=== PATIENT | female | born 1950 | race Caucasian/White ===

== ENCOUNTER 2020-08-24 10:12 | Emergency (ER) | payer MEDICARE, SELFPAY ==
[2020-08-24 10:18] VITALS: BP 116/67; PULSE 113; RESP 14; TEMP 37.1; O2SAT 100
--- NOTE | 2020-08-24 10:25 | ED.SKABFB ---
HPI - Skin/Abscess/Foreign Bdy General Chief complaint: Extremity Injury, Lower Stated complaint: right foot poss gout Time Seen by Provider: 08/24/20 10:26 Source: patient Mode of arrival: ambulatory Limitations: no limitations History of Present Illness HPI narrative: Eva Upton is a 69 yo female with a PMH of HTN, high cholesterol, GERD, who comes to clinic with recurrent gout in feet. Seen by PCP who gave her medrol dose pack x 2 for gout in L foot, now in great toe R foot. Rates pain /. Present x 2 days- worse today Related Data Home Medications Medication Instructions Recorded Confirmed omeprazole 40 mg capsule,delayed 40 mg PO DAILY 09/05/19 08/24/20 release Allergies Allergy/AdvReac Type Severity Reaction Status Date / Time tramadol Allergy Unknown Hives Verified 08/24/20 10:27 Review of Systems Review of Systems: Narrative: CONSTITUTIONAL: Denies fever, chills, sweats. EYES: Denies visual changes, redness, discharge. ENT: Denies rhinorrhea, congestion, sore throat, otalgia. CARDIOVASCULAR: Denies chest pain, palpitations, edema. RESPIRATORY: Denies dyspnea, wheezing, cough GASTROINTESTINAL: Denies abdominal pain, nausea, vomiting, diarrhea. GENITOURINARY: Denies dysuria, hematuria, abnormal discharge SKIN: Denies rash or itching. R great toe swelling NEUROLOGIC: Denies numbness, or focal weakness. PSYCHIATRIC: Denies anxiety or depression. [facility] Surgical History Surgical History Status post bilateral knee replacements Status post D&C Status post hysterectomy with oophorectomy Status post tubal ligation Family History Family History Sibling Hypertension Father Malignant neoplasm of prostate Family history of diabetes mellitus in first degree relative Social History Social History Smoking status: Never smoker Second hand tobacco smoke exposure: No Alcohol intake: never Substance use: never Substance use type: does not use Gender identity (if verbalized by the patient): Female Comments At time of signature, I agree with nursing past medical, surgical, social and family history. There is no relevant family history pertinent to the presenting complaint. Exam Narrative: Exam Narrative: GENERAL: This is a well-nourished, well-developed patient, in moderate distress. HEAD: normocephalic, atraumatic. EYES: Sclera clear/white. Vision is grossly intact. EARS: External ears normal, Hearing grossly intact. NOSE: External nose normal without nasal discharge, nares without redness, no rhinorrhea. THROAT: Mucous membranes moist, NECK: Neck supple, non-tender CARDIOVASCULAR: Regular rate and rhythm without murmurs, gallops, or rubs. RESPIRATORY: Clear to auscultation. Breath sounds equal bilaterally. No wheezes, rales, or rhonchi. GASTROINTESTINAL: Abdomen soft, SKIN: warm, intact with no suspicious lesions or rash, good texture and turgor. NEURO: awake, alert, and oriented to person, place and time. There were no obvious focal neurologic abnormalities. Steady gait EXTREMITIES: Normal range of motion. Right great toe swelling with tenderness at the forefoot 2+ pedal pulse difficulty putting pressure when standing BACK: Nontender without deformity Course Course Emergency Course: Patient comes to clinic with right great toe swelling which she believes is recurrent gout. Gout for last couple weeks ago left foot, treated premedication with 2 rounds Medrol Dosepak agreed to call doctor on Wednesday morning to get blood work ordered by PCP. Started on prednisone 40 mg x 4 days and started on colchicine Discussed possibility of other diagnoses such as RA or OA alternative to get Vital Signs Vital signs: Vital Signs Temperature 98.8 F 08/24/20 10:18 Pulse Rate 113 H 08/24/20 10:18 Respiratory Rate 14 08/24/20 1
== END 2020-08-24 10:54 | disposition home or self-care (01) ==
PROVIDERS: Emergency Provider Nurse Practitioner; PCP Family Medicine
DX: M79.674 Pain in right toe(s) (principal); Z96.653 Presence of artificial knee joint, bilateral; I10 Essential (primary) hypertension; E78.00 Pure hypercholesterolemia, unspecified; K21.9 Gastro-esophageal reflux disease without esophagitis
CPT/HCPCS: 99213; G0463

== ENCOUNTER 2020-10-23 09:27 | Outpatient (CLI) | payer MEDICARE, SELFPAY | END 2020-10-23 09:28 | disposition home or self-care (01) | PROVIDERS: PCP Family Medicine; Visit Provider Nurse Practitioner Family | DX: M10.00 Idiopathic gout, unspecified site (principal) | CPT/HCPCS: 36415; 84550 ==

== ENCOUNTER 2020-12-12 12:09 | Outpatient (CLI) | payer MEDICARE, SELFPAY ==
--- NOTE | ~2020-12-12 | XR_ITS ---
EXAMINATION: XR lumbar spine 2-3V DATE: 12/12/2020 12:32 INDICATION: Low back pain TECHNIQUE: Anteroposterior and lateral views of the lumbar spine, and cone-down lateral view of the l umbosacral junction were obtained. COMPARISON: None. FINDINGS: There are 18 degrees of lumbar levoscoliosis. There is severe loss of intervertebral disc s pace height throughout the lumbar spine, asymmetric on the right. There are 4 mm of anterolisthesis o f L3 on L4 and L4 on L5. There is no fracture. The vertebral body heights are maintained. There is se german lower lumbar facet osteoarthritis. Calcified atherosclerosis is noted. Small degenerative osteop hytes project from the anterior endplates of multiple vertebral bodies. IMPRESSION: 1. Levoscoliosis and severe spondylosis of the lumbar spine. Reviewed, dictated and finalized at location A. R [employer]AT[employer] SUPERVISOR
== END 2020-12-12 12:10 | disposition home or self-care (01) ==
PROVIDERS: PCP Family Medicine; Visit Provider Nurse Practitioner Family
DX: M47.896 Other spondylosis, lumbar region (principal)
CPT/HCPCS: 72100

== ENCOUNTER → 2021-01-25 10:32 | Outpatient (CLI) | payer MEDICARE, SELFPAY ==
--- NOTE | ~2021-01-25 | MR_ITS ---
EXAMINATION: MR lumbar spine wo con DATE: 01/25/2021 11:22 INDICATION: Low back pain. Right buttock pain. TECHNIQUE: Magnetic resonance imaging (MRI) of the lumbar spine was performed without intravenous con trast. Sequences included sagittal T2-weighted FSE, sagittal T2-weighted FS FSE, sagittal T1-weighted FSE, and axial T2-weighted FSE. COMPARISON: Lumbar spine radiographs 12/12/2020 FINDINGS: There is 21 degrees levoscoliosis of lumbar spine. There is 3 mm retrolisthesis of L1 on L2 and L2 on L3 and 3 mm anterolisthesis of L3 on L4 and L4 on L5. There is severely decreased disc hei ght from L1-L2 through 3-L4 and L5-S1 with endplate remodeling. There is moderately decreased disc he ight at L4-L5. There is mild chronic anterior wedging of T12 vertebral body. The distal spinal cord s ignal intensity is normal. The conus medullaris is at L1. The following disc levels are specifically discussed: L1-L2: The disc is bulging and has an annular fissure. There is severe bilateral facet joint osteoart hritis. There is moderate right and mild left neural foraminal stenosis. There is mild central canal stenosis. L2-L3: The disc is bulging and has an annular fissure. There is moderate right and severe left facet joint osteoarthritis. There is mild bilateral neural foraminal stenosis. There is mild central canal stenosis. L3-L4: The disc is bulging and has an annular fissure. There is severe bilateral facet joint osteoart hritis. There is mild bilateral neural foraminal stenosis. There is mild central canal stenosis. L4-L5: The disc is bulging and has an annular fissure. There is severe bilateral facet joint osteoart hritis. There is mild right and moderate left neural foraminal stenosis. There is mild central canal stenosis. L5-S1: The disc is bulging and has an annular fissure. There is mild right and severe left facet join t osteoarthritis. There is mild bilateral neural foraminal stenosis. There is mild central canal sten osis. IMPRESSION: 1. Severe lumbar spondylosis. 2. Lumbar levoscoliosis. Reviewed, dictated and finalized at location A.
== END ==
PROVIDERS: PCP Family Medicine; Visit Provider Physician Assistant
DX: M47.896 Other spondylosis, lumbar region (principal)
CPT/HCPCS: 72148

== ENCOUNTER 2021-06-26 09:39 | Outpatient (CLI) | payer MEDICARE, SELFPAY ==
--- NOTE | 2021-06-26 11:30 | NEURO_ITS ---
Impression: # Complains of numbness of hand. # Right Carpal Tunnel Syndrome. # No ulnar neuropathy. # Normal needle/EMG exam. Nerve Conduction Studies Anti Sensory Summary Table Stim Site NR Peak (ms) P-T Amp (?V) Site1 Site2 Delta-P (ms) Dist (cm) Brendan (m/s) Right Median Anti Sensory (2-3nd Digit) Wrist 5.4 13.9 Wrist 2-3nd Digit 5.4 14.0 26 Wrist 5.6 22.2 Wrist 2-3nd Digit 5.4 14.0 26 Right Radial Anti Sensory (Base 1st Digit) Wrist 2.3 18.2 Wrist Base 1st Digit 2.3 0.0 Right Ulnar Anti Sensory (5th Digit) Wrist 2.9 67.3 Wrist 5th Digit 2.9 14.0 48 Motor Summary Table Stim Site NR Onset (ms) O-P Amp (mV) Site1 Site2 Delta-0 (ms) Dist (cm) Brendan (m/s) Right Median Motor (Abd Poll Brev) Wrist 4.5 0.9 Elbow Wrist 4.5 27.0 60 Elbow 9.0 1.3 Right Ulnar Motor (Abd Dig Minimi) Wrist 3.0 4.1 A Elbow Wrist 4.5 26.0 58 A Elbow 7.5 1.8 F Wave Studies NR F-Lat (ms) L-R F-Lat (ms) Right Median (Mrkrs) (Abd Poll Brev) 32.60 Right Ulnar (Mrkrs) (Abd Dig Min) 30.70 EMG Side Muscle Nerve Root Ins Act Fibs Amp Dur Recrt Comment Right 1stDorInt Ulnar C8-T1 Nml Nml Nml Nml Nml Right Ext Indicis Radial (Post Int) C7-8 Nml Nml Nml Nml Nml Right Ext Digitorum Radial (Post Int) C7-8 Nml Nml Nml Nml Nml Right BrachioRad Radial C5-6 Nml Nml Nml Nml Nml Right PronatorTeres Median C6-7 Nml Nml Nml Nml Nml Right Abd Poll Brev Median C8-T1 Nml Nml Nml Nml Nml Right ABD Dig Min Ulnar C8-T1 Nml Nml Nml Nml Nml MTDD
== END 2021-06-26 09:40 | disposition home or self-care (01) ==
LOC: ANHNEURO 09:40
PROVIDERS: PCP Family Medicine; Visit Provider Physician Assistant
DX: G56.01 Carpal tunnel syndrome, right upper limb (principal)
CPT/HCPCS: 95886; 95909

== ENCOUNTER → 2021-09-23 08:54 | Outpatient (CLI) | payer MEDICARE, SELFPAY ==
--- NOTE | ~2021-09-23 | XR_ITS ---
XR ankle RT min 3V DATE: 09/23/2021 09:10 INDICATION: Right ankle and foot pain TECHNIQUE: 4 views COMPARISON: None FINDINGS: There is distal Achilles tendon proximal moderate calcification. There is prominent plantar calcaneal enthesopathy is a calcification at the plantar aponeurosis. Prominent hypertrophic changes noted along the dorsal aspect of the anterior process of the talus. Os teophytic changes are noted at the tarsal joints. No fracture or dislocation of the ankle or disruption of the ankle mortise. No periosteal reaction or bone destruction is detected. IMPRESSION: No fracture or dislocation of the ankle Polyarticular osteoarthritic changes at the tarsal joints Plantar calcaneal enthesopathy Distal Achilles tendon and plantar aponeurosis calcifications Reviewed, dictated and finalized at location B. E ARCHITECT
== END ==
PROVIDERS: PCP Family Medicine; Visit Provider Family Medicine
DX: M19.071 Primary osteoarthritis, right ankle and foot (principal); M77.31 Calcaneal spur, right foot
CPT/HCPCS: 73610

== ENCOUNTER 2021-12-01 11:20 | Outpatient (CLI) | payer MEDICARE, SELFPAY ==
--- NOTE | 2021-12-01 11:39 | ECG_ITS ---
Measurements Intervals Bimble Rate: 91 P: 27 NV: 152 QRS: 4 QRSD: 85 T: 5 QT: 353 QTc: 435 Interpretive Statements SINUS RHYTHM CONSIDER INFERIOR INFARCT, AGE INDETERMINATE BORDERLINE T WAVE ABNORMALITY- ANTERIOR LEADS BASELINE ARTIFACT- I, II, III, AVR, AVL, AVF, V5 ABNORMAL ECG Electronically Signed On 12-01-2021 12:19:58 [employer] SERV[employer] TECHNICIAN by Gerard Azar D.O.
[2021-12-01 12:17] LABS: Anion Gap 4 mmol/L (8-16); Blood Urea Nitrogen 28 mg/dL (7-17); Calcium 9.3 mg/dL (8.4-10.2); Carbon Dioxide 28 mmol/L (22-30); Chloride 101 mmol/L (98-107); Estimated Glomerular Filt Rate 55; Glucose 130 mg/dL (65-110); Potassium 4.2 mmol/L (3.4-5.0); Sodium 133 mmol/L (137-145)
== END 2021-12-01 11:21 | disposition home or self-care (01) ==
LOC: ANHSURGERY 11:24
PROVIDERS: Anesthesiology; PCP Family Medicine; Visit Provider Podiatrist Foot & Ankle Surgery
DX: I10 Essential (primary) hypertension (principal); Z79.899 Other long term (current) drug therapy; Z01.818 Encounter for other preprocedural examination; R94.31 Abnormal electrocardiogram [ECG] [EKG]
CPT/HCPCS: 36415; 80048; 93005

== ENCOUNTER 2021-12-05 01:42 | Day surgery (SDC) | payer MEDICARE, SELFPAY ==
[2021-11-27 11:07] VITALS: BMI 41.0
--- NOTE | 2021-11-27 11:25 | PC.NURSE ---
Report to the Outpatient Waiting Room, entrance under the green pavilion located off [facility], at time _0630_ on date _12/05/21_. OR Time: _0830_. - You and your visitor will be asked a series of questions to screen for COVID 19 for your protection. - A mask is required within the hospital. Preoperative COVID Testing Requirements: NONE Patients may have clear liquids (water, carbonated beverages, clear teas, apple juice) until 3 hours prior to surgery (0530 AM) with a maximum of 20 ounces. - No food from midnight until time of surgery Take the following medications with a SIP of water the morning of surgery: _NONE_ Medications to discontinue per ANESTHESIA - __NEURIVA 3 DAYS PRIOR TO SURGERY, LAST DOSE TO BE TAKEN ON 12/01/21_ Please no make-up, nail kyrgyz, hairspray, perfume, deodorant, or body powder the day of surgery. No jewelry (including any body piercings) or valuables the day of surgery, leave them at home. Please take a shower or bath the night before, or the morning of, surgery with an antibacterial soap. Wear comfortable, loose fitting clothing. - Jewelry must be removed prior to entering the operating room. Rings and piercings that are not removed may be cut off. - The hospital will not accept responsibility for valuables. - Please leave all valuables, including medications, at home the day of surgery. If you are going home after surgery, a licensed non emergency services ambulance driver must drive you home. - NO public transportation without another adult. - We recommend that an adult stay with you for 24 hours following discharge. - We also recommend that you do not drive, make important decision, drink alcoholic beverages, or take any drugs that were not prescribed by your health care provider for at least 24 hours after your discharge time. One visitor will be allowed to accompany the patient into the hospital. Patients visitor will be instructed to remain with patient at all times or leave the building. We will allow the visitor to come back to the postoperative area when patient is ready. Follow any additional instructions given to you from your surgeon. Telephone instructions given to ____PT and asked if any additional questions and then verbalized understanding. Patient advised to call surgeon office or pre surgery nurse liaisonANTOINE [phone] if any additional questions.
[2021-12-05] VITALS (14 sets, daily range): BP systolic 114–148; BP diastolic 65–95; PULSE 64–97; RESP 12–16; TEMP 36.1–36.5; O2SAT 92–100
--- NOTE | ~2021-12-05 | XR_ITS ---
EXAMINATION: XR surgery orthopedic DATE: 12/05/2021 10:09 INDICATION: Bunion. Left foot arthrodesis. TECHNIQUE: 2 intraoperative fluoroscopic views of left foot were obtained. I was not present. Fluoros copy exposure time was 14 seconds. COMPARISON: Left foot radiographs 05/12/2016 FINDINGS: There are changes of bunionectomy. There are changes of arthrodesis of first metatarsophala ngeal joint with dorsal plate and screws. There are changes of osteotomy of head of second metatarsal with fixation with 2 screws. IMPRESSION: 1. Arthrodesis of first metatarsophalangeal joint. 2. Osteotomy of head of second metatarsal with screw fixation. Reviewed, dictated and finalized at location A. NURSE
[2021-12-05] MEDS: LACTATED RINGERS 1,000 ML 30 ML IV CONT ×2 (07:00→10:13)
--- NOTE | 2021-12-05 07:13 | WPDHPUPDATE1 ---
History and Physical Update Update Date/Time: 12/05/21 07:13 History and Physical has been reviewed, including an updated exam of the patient. There are NO changes in the patient's condition. Risks, benefits, and alternatives have been discussed and questions answered. Patient agrees to proceed with procedure.
--- NOTE | 2021-12-05 07:25 | P.PNAN_ITS ---
Anes - Initial Pre Proc Eval Procedure: Operation Date: 12/05/21 08:30 Proposed Procedures p Arthrodesis First Metatarsophalangeal Joint Left Foot, - Marvin Grace JR, MD s Ankur Shortening Second Metatarsal Osteotomy Left Foot - Marvin Grace JR, MD Date/Time: 12/05/21 07:25 Surgeon: Marvin Grace JR, MD Pre Op Diagnosis: arthritic bunion left foot,metarsalgia 2nd leftMPJ Patient Data Age: 71 Gender: F Height: 1.6 m Weight: 105 kg Allergies Allergy/AdvReac Type Severity Reaction Status Date / Time tramadol Allergy Unknown Hives Verified 12/05/21 07:22 Home Medications Medication Instructions Recorded Confirmed Type colchicine 0.6 mg capsule 0.6 mg PO DAILY #90 cap 09/29/21 12/05/21 Rx allopurinol 100 mg PO HS 11/27/21 12/05/21 History coffee xt-phosphatidyl serine 1 tablet PO HS 11/27/21 12/05/21 History [Neuriva Original] furosemide 40 mg QAM 11/27/21 12/05/21 History lisinopril 10 mg QAM 11/27/21 12/05/21 History pravastatin 80 mg tablet 80 mg PO QAM #90 tablet 12/02/21 12/05/21 Rx Patient hx anesthesia problems: none Family hx anesthesia problems: none Results Review: All pre-operative results and documents have been reviewed as part of the pre-operative evaluation. [facility] Past Medical History Medical History (Updated 12/05/21 @ 07:26 by Luis Uriostegui MD) Morbid obesity Surgical History Surgical History Status post bilateral knee replacements Status post D&C Status post hysterectomy with oophorectomy Status post tubal ligation Family History Family History Sibling Hypertension Father Malignant neoplasm of prostate Family history of diabetes mellitus in first degree relative Social History Social History Smoking status: Never smoker Second hand tobacco smoke exposure: No Alcohol intake: never Substance use: never Substance use type: does not use Living arrangements: with family Gender identity (if verbalized by the patient): Female Sexual Orientation (if Verbalized by the Patient): Straight or Heterosexual Spiritual care concerns: No Anes - Eval Final PreProcedure Day of Procedure 12/05/21 07:25 Patient weight: morbidly obese Heart: regular rate and rhythm Lungs: clear to auscultation Airway: Mallampati scale class II Neurological: alert and oriented Last oral intake: >/= 8 hours ASA classification: III Emergent: no Anesthetic plan: proceed Anesthesia type and monitoring: general LMA and standard monitoring Results Review: All pre-operative results and documents have been reviewed as part of the pre-operative evaluation. Informed Consent: The patient's anesthetic plan and its attendant risks and benefits were discussed with the patient/family/POA. Questions were solicited and answers provided to the satisfaction of the patient/family/POA.
[2021-12-05] MEDS: ceFAZolin 2 GM/D5W 50 ML 2 GM/50 ML BAG IVPB (08:32)
--- NOTE | 2021-12-05 09:33 | WPDANESPNB ---
Anes - Peripheral Nerve Block Date/Time: 12/05/21 09:33 I have discussed with the patient/family/POA the placement of a peripheral nerve block for post-operative pain management, including associated risks, benefits, complications, and side effects. Alternative methods of post-operative analgesia were detailed. Questions were solicited and answers provided to the satisfaction of the patient/family/POA. Time-Out: A pre-procedural Time-Out was completed immediately before starting the procedure and confirmed: Patient Identification, Site, Procedure, Patient Position and the Availability of Requisite Equipment. Clinical Indications: Acute post-operative pain management requested by the operative surgeon. Nerve Block Insertion Note Anes-nerve block: posterior fossa sciatic left and other (saphenous) Patient position: supine Needle: 22 gauge, stimulating, insulated echogenic needle. Needle length: 120 mm Technique: nerve stimulation lost at (mA) (0.5) Injectate: bupivacaine 0.5% with epi 5 mcg/ml (24cc sciatic, 8 cc saphenous) and dexamethasone (mg) (8) Observations: tolerated well Complications: none Procedure start time:: 824 Procedure end time:: 829
--- NOTE | 2021-12-05 10:17 | W.PM.PROC2 ---
Procedure Note - Detailed Date of Procedure 12/05/21 Pre-op Diagnosis 1. Arthritic bunion deformity left foot 2. Metatarsalgia sub second metatarsal phalangeal joint left foot Post-op Diagnosis Same Procedure Performed PROCEDURE IN DETAIL: Under mild sedation, the patient was brought into the operating room, placed on the operating table in supine position. A pneumatic ankle tourniquet was placed about the patient's ipsilateral ankle. Following general anesthesia and a popliteal fossa block, the foot was then scrubbed, prepped, and draped in the usual aseptic manner. An Esmarch bandage was then used to exsanguinate the patient's foot and the pneumatic ankle tourniquet was then inflated. Surgery began in the following manner: Attention was directed to the dorsal medial aspect of the 1st metatarsophalangeal joint where there was a moderate subcutaneous prominence was noted. The incision was made starting along the central shaft of the 1st metatarsal and extending just proximal to the interphalangeal joint of the hallux. The incision was continued deep down through the subcutaneous tissues using sharp and blunt dissection. All bleeders were cauterized as necessary. At this point, the dissection was continued down to the level of the periosteum and capsular structures overlying the 1st metatarsophalangeal joint. A full length periosteum and capsular incision was made just medial to the extensor hallucis longus tendon. The periosteum and capsular structures were freed from the base of the proximal phalanx as well as the distal 1st metatarsal. At this point, the 1st metatarsophalangeal joint was identified. There was loss of articular cartilage to the head of the 1st metatarsal as well as the base of the proximal phalanx worse centrally and medially. Significant gouty tophi noted to the entire joint. There was significant broadening and hypertrophy of the 1st metatarsophalangeal joint. Utilizing a sagittal bone saw, the hypertrophied 1st metatarsal was resected dorsally, medially, and laterally. A power bur was used to make sure that there were no rough edges and also to further debride the hypertrophic 1st metatarsal. Next, a rongeur was used to resect the hypertrophic base of the proximal phalanx. At this point, the reamer system for the [employer] system was used to denude the degenerative cartilage from the head of the 1st metatarsal as well as the base of the proximal phalanx. The cartilage and subchondral bone were fully debrided utilizing the reamer system until healthy bleeding bone was noted. Next, a 2-0 drill bit was used to further fenestrate the head of the 1st metatarsal as well as the base of the proximal phalanx in order to allow fusion across the 1st metatarsophalangeal joint. Next, a 0.045 inch K-wire was driven from the medial aspect of the base of the proximal phalanx into the head of the 1st metatarsal in order to serve as temporary fixation. A large steel plate was used to make sure that the hallux was in a rectus position both in the sagittal plane as well as the frontal plane. Excellent position of the hallux was noted. Next, a Maxforce plate was placed atop the 1st metatarsophalangeal joint held in position with [place] wires. Utilizing standard principles and techniques, the 2 distal drill holes were drilled and three 3.0 mm mm fully-threaded locking screws were driven from dorsal to plantar holding the distal aspect of the plate intact. At this point, the [employer]force compression system was utilized from dorsal distal to proximal plantar across the 1st metatarsophalangeal joint with excellent compression noted. Next, a 3.0mm locking screw was used to further compress the joint along the oblong dynamic compression screw slot. Next, the remaining 2 proximal drill holes were drilled from dorsal to plantar across and two 3.0 mm locking screws were driven form dorsal to plantar. The wound site was then flushed with copious amount
[2021-12-05] MEDS: fentaNYL CITRATE INJ (*CRX) 100 MCG/2 ML VIAL 25 MCG IV PUSH ×8 (10:29→11:58)
[2021-12-05] MEDS: ACETAMINOPHEN 500 MG TABLET 1000 MG PO (12:27)
[2021-12-05] MEDS: oxyCODONE HCL (*CRX) 5 MG TAB IR PO (12:27)
--- NOTE | 2021-12-05 13:33 | SUR.PHASEII ---
DR BURGESS AT BEDSIDE ASSESSING PT & INJECTING 30ML 0.5% BUPIVACAINE INTO LT LE FOR PAIN CONTROL.
== END 2021-12-05 13:37 | disposition home or self-care (01) ==
PROVIDERS: PCP Family Medicine; Visit Provider Podiatrist Foot & Ankle Surgery
PROC: (CPT 28750; principal; 2021-12-05 08:30)
PROC: (CPT 28750; 2021-12-05 08:30)
DX: M21.612 Bunion of left foot (principal); M77.42 Metatarsalgia, left foot; G89.18 Other acute postprocedural pain; E66.01 Morbid (severe) obesity due to excess calories; Z68.41 Body mass index [BMI] 40.0-44.9, adult; I10 Essential (primary) hypertension; M10.9 Gout, unspecified; E78.00 Pure hypercholesterolemia, unspecified; K21.9 Gastro-esophageal reflux disease without esophagitis
CPT/HCPCS: 28755; 28308; 64445; 64450; 36415; 80048; 93005; A9270; C1769; J0690; J1100; J2250; J2405; J2704; J3010; J7120

== ENCOUNTER 2022-03-08 15:52 | Emergency (ER) | payer MEDICARE, SELFPAY ==
--- NOTE | ~2022-03-08 | XR_ITS ---
EXAM: XR wrist RT min 3V DATE: 03/08/2022 16:15 HISTORY: FELL ON STEP IN POOL 03/08/22. GENERALIZED PAIN. . COMPARISON: None available. FINDINGS: Decreased mineralization. No fracture or dislocation. No lytic or blastic lesion. Degenera tive changes most pronounced at the trapeziometacarpal and radiocarpal joints. No erosion or perioste al change. Soft tissues within normal limits. IMPRESSION: No acute osseous finding in the right wrist. Reviewed, dictated and finalized at location K.
[2022-03-08 15:56] VITALS: BP 124/75; PULSE 95; RESP 20; TEMP 36.8; O2SAT 99
--- NOTE | 2022-03-08 16:00 | ED.UPPEXIN ---
HPI - Extremity Injury (Upper) General Chief Complaint: Extremity Injury, Upper Stated Complaint: rt wrist inj Time Seen by Provider: 03/08/22 16:19 Source: patient and RN notes reviewed Mode of arrival: ambulatory Limitations: no limitations History of Present Illness HPI narrative: 71-year-old female presents with concern for right wrist injury. Reports around 230 this afternoon she was getting in a pool walking down concrete steps when she slipped and hit her wrist on the steps. She reports bump that appeared on the dorsal wrist shortly after. She reports tenderness in the wrist when she moves her fingers. She denies decree strength or sensation in the. She reports slightly decreased range of motion due to swelling in the fingers. complaint: injury to: right and wrist Related Data Home Medications Medication Instructions Recorded Confirmed coffee extract 50 mg-phosphatidyl 1 tablet PO HS 11/27/21 03/08/22 serine 50 mg chewable tablet (Neuriva Original) furosemide 40 mg tablet 40 mg QAM 11/27/21 03/08/22 lisinopril 10 mg tablet 10 mg QAM 11/27/21 03/08/22 Allergies Allergy/AdvReac Type Severity Reaction Status Date / Time tramadol Allergy Unknown Hives Verified 03/08/22 15:59 Review of Systems Review of Systems: CONSTITUTIONAL: Denies malaise, chills, sweats, or fever. CARDIOVASCULAR: Denies chest pain, palpitations, or edema. RESPIRATORY: Denies cough or dyspnea. SKIN: Denies rash or itching, redness, lacerations, abrasions. MUSCULOSKELETAL: Reports right wrist pain, bruising NEUROLOGIC: Denies numbness, weakness All systems reviewed & are unremarkable except as noted in HPI and below [facility] Past Medical History Medical History (Updated 03/08/22 @ 16:28 by Mely Campos NP) Morbid obesity Surgical History Surgical History Status post bilateral knee replacements Status post D&C Status post hysterectomy with oophorectomy Status post tubal ligation Family History Family History Sibling Hypertension Father Malignant neoplasm of prostate Family history of diabetes mellitus in first degree relative Social History Social History Smoking status: Never smoker Second hand tobacco smoke exposure: No Alcohol intake: never Substance use: never Substance use type: does not use Gender identity (if verbalized by the patient): Female Sexual Orientation (if Verbalized by the Patient): Straight or Heterosexual Spiritual care concerns: No Comments At time of signature, agree with nursing past medical, surgical, social and family history. There is no relevant family history pertinent to the presenting complaint Exam Narrative: GENERAL: Well-appearing, well-nourished, and in no acute distress. HEAD: Normocephalic, atraumatic. EYES: PERRLA, conjunctivae clear NECK: Supple. CHEST: Speaks in full sentences. No respiratory distress. HEART: Regular rate and rhythm. Normal and equal peripheral pulses. EXTREMITIES: Right wrist, hand, digits have normal strength and sensation, limited range of motion in the digits, unable to make fist due to swelling. No generalized edema, small hematoma noted to the dorsal wrist. 5/5 strength with digit flexion and extension. Normal sensation with sensitivity to light touch and pain. Dorsal wrist tenderness. No open wounds, no skin tenting, no devitalized tissue or atrophy, no trophic changes, no obvious deformity, alignment normal, nearby joints and structures intact. Distal pulses palpable and equal bilaterally, skin warm, dry, pink. Capillary refill less than 3 seconds. SKIN: Warm, dry, no rash. NEURO: Alert and oriented x3. PSYCH: Normal mood and affect Course Course Emergency Course: Patient is aware of diagnosis, understands and agrees to treatment plan. Anticipatory guidance given. Guadalupe
== END 2022-03-08 16:32 | disposition home or self-care (01) ==
PROVIDERS: Emergency Provider Nurse Practitioner; PCP Family Medicine
DX: S60.211A Contusion of right wrist, initial encounter (principal); W10.9XXA Fall (on) (from) unspecified stairs and steps, initial encounter; E66.01 Morbid (severe) obesity due to excess calories; Z68.41 Body mass index [BMI] 40.0-44.9, adult
CPT/HCPCS: 73110; 99213; G0463

== ENCOUNTER → 2022-03-12 16:08 | Outpatient (CLI) | payer MEDICARE, SELFPAY ==
--- NOTE | ~2022-03-12 | XR_ITS ---
XR abdomen/kub 1V 03/12/2022 16:24 INDICATION: [place] pain TECHNIQUE: KUB COMPARISON: None FINDINGS: Bowel gas pattern is normal. There is no evidence of free air, mass, organomegaly, ascites or obstruction. No abnormal calculi are seen. The bones appear intact. Moderate lower thoracic and lumbar spondylosis with levoscoliosis. IMPRESSION: 1: No acute abdominal abnormality identified. Reviewed, dictated and finalized at location B.
== END ==
PROVIDERS: PCP Family Medicine; Visit Provider Nurse Practitioner Family
DX: R10.9 Unspecified abdominal pain (principal)
CPT/HCPCS: 74018

== ENCOUNTER 2022-03-13 09:47 | Outpatient (CLI) | payer MEDICARE, SELFPAY ==
--- NOTE | ~2022-03-13 | MR_ITS ---
EXAMINATION: MR wrist RT wo con DATE: 03/13/2022 10:28 INDICATION: Right wrist pain and swelling. TECHNIQUE: Magnetic resonance imaging (MRI) of the wrist was performed without intravenous contrast. Sequences performed include coronal T1-weighted FSE, coronal PD-weighted FS FSE, axial PD-weighted FS FSE, axial PD-weighted FSE, sagittal PD-weighted FSE, and sagittal PD-weighted FS FSE. COMPARISON: None FINDINGS: Intrinsic ligaments: There is a full-thickness tear of scapholunate ligament. There is degeneration of lunotriquetral liga ment without well-defined tear. Triangular fibrocartilage complex (TFCC): There is a full-thickness tear of triangular fibrocartilage. Extensor wrist: There is mild tendinopathy in the second, fourth, and fifth extensor tendon compartments. There is a tear of the extensor carpi ulnaris tendon sheath as evidenced by displacement of the tendon from the groove in distal ulna. Flexor wrist: The flexor tendons are normal. Median nerve is normal. Guyon's canal: Ulnar nerve is normal. Bones/other: There is palmar tilt of lunate, consistent with volar intercalated segmental instability. There is se german osteoarthritis of radiolunate joint including full-thickness cartilage loss and cortical remodel ing. There is moderate osteoarthritis of first carpometacarpal joint and mild osteoarthritis of secon d and third carpometacarpal joints. There are communicating effusions involving the distal radioulnar joint, radiocarpal compartment, and midcarpal compartment. There is subcutaneous edema about the wri st. IMPRESSION: 1. 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 2. Full-thickness tear of triangular fibrocartilage. 3. Full-thickness tear of scapholunate ligament. 4. Communicating effusions involving the distal radioulnar joint, radiocarpal compartment, and midcar pal compartment. Reviewed, dictated and finalized at location A. IMPRESSION: 1. 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 2. Full-thickness tear of triangular fibrocartilage. 3. Full-thickness tear of scapholunate ligament. 4. Communicating effusions involving the distal radioulnar joint, radiocarpal c ompartment, and midcarpal compartment.
== END 2022-03-13 09:48 | disposition home or self-care (01) ==
PROVIDERS: PCP Family Medicine; Visit Provider Nurse Practitioner Family
DX: M19.031 Primary osteoarthritis, right wrist (principal); S63.591A Other specified sprain of right wrist, initial encounter; X58.XXXA Exposure to other specified factors, initial encounter
CPT/HCPCS: 73221

== ENCOUNTER 2022-12-04 14:14 | Outpatient (CLI) | payer MEDICARE, SELFPAY ==
--- NOTE | ~2022-12-04 | MM_ITS ---
EXAMINATION: MM screening [facility] BI w dada HISTORY: Screening TECHNIQUE: Craniocaudal and mediolateral oblique 3-D tomosynthesis images were obtained and synthetic 2-D images were generated. CAD analysis was submitted and interpreted. COMPARISON: Comparison to multiple prior studies sequentially, with oldest reviewed study dated 05/14. BREAST PARENCHYMAL COMPOSITION: There are scattered areas of fibroglandular density. FINDINGS: There is no evidence of suspicious mass, calcification, or architectural distortion to sugg est malignancy in either breast. There has been no suspicious interval change. IMPRESSION: 1. No mammographic evidence of malignancy. 2. Recommend routine screening mammography in one year. BI-RADS Category 1: Negative Reviewed, dictated and finalized at location B. [facility]
--- NOTE | ~2022-12-04 | DEXA_ITS ---
Bone Density Report Name: JUAN MANUEL AGUDELO Age: 72 Sex: Female Ethnicity: White Date of : 1950 Indication: postmenopausal; screening for osteoporosis; height loss; prior fracture; hysterectomy; Referring Provider: LUCI KIM Study: Bone densitometry was performed. Exam Date: December 04, 2022 Accession number: [id number] Bone Density: Region BMD T-score Z-score Classification AP Spine(L1, L4) 1.294 2.3 4.4 Normal Femoral Neck (Left) 0.889 0.4 2.2 Normal Total Hip (Left) 1.032 0.7 2.2 Normal Femoral Neck (Right) 0.879 0.3 2.1 Normal Total Hip (Right) 1.045 0.8 2.3 Normal Total Hip Mean 1.038 0.8 2.3 Normal World Health Organization criteria for BMD impression classify patients as: Normal (T-score at or above -1.0), Osteopenia (T-score between -1.0 and -2.5), or Osteoporosis (T-score at or below -2.5). 10-year Fracture Risk: FRAX not reported because: All T-scores for Spine Total, Hip Total, Femoral Neck at or above -1.0 Clinical Information Provided by Patient: Has had a low trauma fracture Has the following medical conditions: Hysterectomy Patient maximum height was 63 Menopause Age: 51 Onset of menses at age 17 Number of children 2 Impression: The patient has normal bone mass. The patient has risk factors, including: previous fracture. Discussion: LOW RISK OF FRACTURE; BONE DENSITY IS WELL ABOVE THE MINIMUM DESIRABLE LEVEL AND ABOVE AVERAGE FOR AGE AND SEX AT ALL SKELETAL SITES TESTED. This person's bone density is above expected limits for age and sex. This is rarely clinically significant, but should be pursued if there are significant musculoskeletal complaints. The patient should follow a healthful lifestyle (good nutrition with adequate calcium and vitamin D, and appropriate weight-bearing exercise). Follow-Up: Consider repeating this study in 5 years or sooner if there is some new clinical indication. Reported by: [facility] on 12/04/2022 3:06:00 PM. Reviewed, dictated and finalized at location ADorota SADLER
== END 2022-12-04 14:15 | disposition home or self-care (01) ==
LOC: ANHIMG 14:15
PROVIDERS: PCP Family Medicine; Visit Provider Physician Assistant
DX: Z12.31 Encounter for screening mammogram for malignant neoplasm of breast (principal); Z78.0 Asymptomatic menopausal state
CPT/HCPCS: 77063; 77067; 77080

== ENCOUNTER 2023-08-30 10:51 | Emergency (ER) | payer MEDICARE, SELFPAY ==
--- NOTE | 2023-08-30 10:52 | ED.URI ---
HPI - URI/Sore Throat General Chief Complaint: Upper Respiratory Infection Stated Complaint: Sinus Pain Time Seen by Provider: 08/30/23 11:05 Source: patient and RN notes reviewed Mode of arrival: ambulatory Limitations: no limitations History of Present Illness HPI Narrative: 72-year-old female presents with concern for one-month history of sinus congestion, sinus pressure, sinus pain. She reports fluid in the ears. She reports cough and headache. Reports she has been taking multiple [id number] medications without relief. Reports her eyes were matted shut this morning when she woke up. MD elicited complaint: cough, nasal congestion and sinus pain Related Data Allergies Allergy/AdvReac Type Severity Reaction Status Date / Time No Known Allergies Allergy Verified 08/30/23 10:59 Review of Systems Review of Systems: CONSTITUTIONAL: Denies malaise, chills, sweats, or fever. EYES: Denies visual changes, redness, or discharge. ENT: Reports rhinorrhea, congestion, sinus pain, otalgia CARDIOVASCULAR: Denies chest pain, palpitations, or edema. RESPIRATORY: Reports cough. Denies dyspnea. GASTROINTESTINAL: Denies abdominal pain, nausea, vomiting, diarrhea SKIN: Denies rash or itching. MUSCULOSKELETAL: Denies myalgia. NEUROLOGIC: Reports headache. All systems reviewed & are unremarkable except as noted in HPI and below PMFSH Past Medical History Medical History Morbid obesity Surgical History Surgical History Status post bilateral knee replacements Status post D&C Status post hysterectomy with oophorectomy Status post tubal ligation Family History Family History Sibling Hypertension Father Malignant neoplasm of prostate Family history of diabetes mellitus in first degree relative Social History Social History Smoking status: Never smoker Second hand tobacco smoke exposure: No Alcohol intake: never Substance use: never Substance use type: does not use Lack of Transportation: No Lack of Food: Never True Current Housing: I Have Housing Concerned About Future Housing: No Difficulty Paying Gas/Electric Bills: No Difficulty Paying for Meds: No Education: Associate Degree Difficulty w/ Childcare or Family Care: No Living arrangements: with family Additional living arrangements comments: Occupation/Education: retired Gender identity (if verbalized by the patient): Female Sexual Orientation (if Verbalized by the Patient): Straight or Heterosexual Spiritual care concerns: No Comments At time of signature, agree with nursing past medical, surgical, social and family history. There is no relevant family history pertinent to the presenting complaint Exam Narrative: GENERAL: Well-appearing, well-nourished, and in no acute distress. HEAD: Normocephalic EYES: PERRLA, conjunctivae clear ENT: Nares clear, turbinates edematous and erythematous. Mucous membranes moist. TM pearly harvey with dull light reflex bilaterally; no tragal tenderness. Oropharynx not erythematous without lesions. Tonsils not enlarged and without exudate, no drooling, no hoarseness, no trismus, uvula midline. NECK: Supple. No lymphadenopathy CHEST: Clear to auscultation, breath sounds equal. No wheezing, rhonchi, rales, or stridor. No respiratory distress, speaks in full sentences. HEART: Regular rate and rhythm. No murmur heard. SKIN: Warm, dry, no rash. NEURO: Alert and oriented x3. PSYCH: Normal mood and affect Course Course Emergency Course: Patient is aware of diagnosis, understands and agrees to treatment plan. Anticipatory guidance given. Patient agrees to follow-up as directed and is aware of reasons to seek care at the emergency department. Portions of this record m
[2023-08-30 10:56] VITALS: BP 128/70; PULSE 93; RESP 20; TEMP 36.4; O2SAT 98
== END 2023-08-30 11:20 | disposition home or self-care (01) ==
PROVIDERS: Emergency Provider Nurse Practitioner; PCP Family Medicine
DX: J32.9 Chronic sinusitis, unspecified (principal); E66.01 Morbid (severe) obesity due to excess calories; Z68.41 Body mass index [BMI] 40.0-44.9, adult
CPT/HCPCS: 99213; G0463

== ENCOUNTER 2024-03-29 09:59 | Outpatient (CLI) | payer OTHER, SELFPAY ==
--- NOTE | ~2024-03-29 | MM_ITS ---
EXAMINATION: MM screening [facility] BI w dada HISTORY: Screening mammogram, family history of breast cancer in her sister. TECHNIQUE: Craniocaudal and mediolateral oblique 3-D tomosynthesis images were obtained and synthetic 2-D images were generated. CAD analysis was submitted and interpreted. COMPARISON: 12/04/2022, 10/18/2018, 05/14/2015 BREAST PARENCHYMAL COMPOSITION:Not Dense. The breasts are almost entirely fatty FINDINGS: Small low-density mass with fatty hilum at the upper, outer left breast is compatible with benign lymph node. No suspicious mass, calcification, or architectural distortion are identified in e ither breast to suggest malignancy. There has been no suspicious interval change. IMPRESSION: No mammographic evidence of malignancy. Recommend routine screening mammography in one year. BI-RADS Category 2: Benign finding(s). Reviewed, dictated and finalized at location .
== END 2024-03-29 10:00 | disposition home or self-care (01) ==
LOC: ANHIMG 10:02
PROVIDERS: PCP Family Medicine; Visit Provider Obstetrics & Gynecology
DX: Z12.31 Encounter for screening mammogram for malignant neoplasm of breast (principal)
CPT/HCPCS: 77063; 77067

== ENCOUNTER 2024-04-08 08:10 | Emergency (ER) | payer OTHER, SELFPAY ==
[2024-04-08 08:20] VITALS: BP 124/70; PULSE 81; RESP 18; TEMP 36.4; O2SAT 100
--- NOTE | 2024-04-08 08:36 | ED.URI ---
HPI - URI/Sore Throat General Chief Complaint: Upper Respiratory Infection Stated Complaint: Sore Throat/Headache Time Seen by Provider: 04/08/24 08:36 Source: patient, RN notes reviewed and old records reviewed Mode of arrival: ambulatory Limitations: no limitations History of Present Illness HPI Narrative: 73 year old female presents to [facility] care with complaints of 5 day history of sinus congestion, drainage, ear pressure,facial pressure and also cough which is worse at night. Patient reports history of sinus infections usually gets at least a couple a year. Patient reports that she has been taking Coricidin HBP without any improvement in her symptoms. Patient reports that she is getting ready to leave for vacation and wants to be well enough to go with her family. MD elicited complaint: cough, rhinorrhea, nasal congestion and sinus pain Pertinent past history: sinusitis Onset (ago): day(s) (5) Severity: moderate Description of mucous: clear and yellow Able to tolerate fluids by mouth: Yes Treatments prior to arrival: other (Coricidin) Related Data Home Medications Medication Instructions Recorded Confirmed allopurinol 100 mg tablet 100 mg PO DAILY 04/08/24 04/08/24 celecoxib 100 mg capsule 100 mg PO DAILY 04/08/24 04/08/24 Allergies Allergy/AdvReac Type Severity Reaction Status Date / Time No Known Allergies Allergy Verified 04/08/24 08:24 Review of Systems Review of Systems: CONSTITUTIONAL: Denies malaise, chills, sweats, or fever. EYES: Denies visual changes, redness, or discharge. ENT: Reports rhinorrhea, congestion, sinus pain, otalgia and no sore throat. CARDIOVASCULAR: Denies chest pain, palpitations, or edema. RESPIRATORY: Reports cough worse at night,non productive.? Denies dyspnea. GASTROINTESTINAL: Denies abdominal pain, nausea, vomiting, diarrhea SKIN: Denies rash or itching. MUSCULOSKELETAL: Denies myalgia. NEUROLOGIC: Denies headache. All systems reviewed & are unremarkable except as noted in HPI and below PMFSH Past Medical History Medical History Arthritis Hyperlipidemia Hypertension Idiopathic gout Morbid obesity Surgical History Surgical History Status post bilateral knee replacements Status post cataract extraction and insertion of intraocular lens of left eye 06/28/23 Status post cataract extraction and insertion of intraocular lens of right eye Status post D&C Status post hysterectomy with oophorectomy Status post tubal ligation Family History Family History Sibling Hypertension Father Malignant neoplasm of prostate Family history of diabetes mellitus in first degree relative Social History Social History Smoking status: Never smoker Second hand tobacco smoke exposure: No Alcohol intake: never Substance use: never Substance use type: does not use Lack of Transportation: No Lack of Food: Never True Current Housing: I Have Housing Concerned About Future Housing: No Difficulty Paying Gas/Electric Bills: No Difficulty Paying for Meds: No Education: Associate Degree Difficulty w/ Childcare or Family Care: No Living arrangements: with family Additional living arrangements comments: Occupation/Education: retired Gender identity (if verbalized by the patient): Female Sexual Orientation (if Verbalized by the Patient): Straight or Heterosexual Spiritual care concerns: No Comments At time of signature, agree with nursing past medical, surgical, social and family history. There is no relevant family history pertinent to the presenting complaint Exam Narrative: GENERAL: Well-appearing, well-nourished, obese and in no acute distress. HEAD: Normocephalic EYES: PERRLA, conjunctivae clear EN
== END 2024-04-08 08:52 | disposition home or self-care (01) ==
PROVIDERS: Emergency Provider Registered Nurse; PCP Family Medicine
DX: J01.40 Acute pansinusitis, unspecified (principal); R05.1 Acute cough; M19.90 Unspecified osteoarthritis, unspecified site; E78.5 Hyperlipidemia, unspecified; I10 Essential (primary) hypertension; M10.00 Idiopathic gout, unspecified site; E66.01 Morbid (severe) obesity due to excess calories; Z68.41 Body mass index [BMI] 40.0-44.9, adult; Z96.653 Presence of artificial knee joint, bilateral; Z96.1 Presence of intraocular lens; Z98.42 Cataract extraction status, left eye; Z98.41 Cataract extraction status, right eye
CPT/HCPCS: 99213; G0463

== ENCOUNTER 2024-04-22 16:21 | Emergency (ER) | payer OTHER, SELFPAY ==
[2024-04-22 16:25] VITALS: BP 148/85; PULSE 101; RESP 16; TEMP 36.4; O2SAT 100
--- NOTE | 2024-04-22 16:53 | ED.GENADULT ---
HPI - General Adult General Chief complaint: Urogenital-Female Stated complaint: poss bladder infection Time Seen by Provider: 04/22/24 16:39 Source: patient, RN notes reviewed and old records reviewed Mode of arrival: ambulatory Limitations: no limitations History of Present Illness HPI narrative: 73-year-old female to [facility] with lower back pain, urinary urgency, urinary frequency, fatigue, nausea started yesterday. Patient states she had intermittent nausea this morning. Patient reports that she noticed blood in her urine today and became increasingly concerned. Patient denies vomiting, urinary incontinence, fever, abdominal pain, flank pain, allergies. patient states recent vacation to the beach and reports that they just traveled back via vehicle today. Patient states that she may not have been drinking as much water and taking bathroom breaks as frequently. Patient states that she normally takes a water pill and that she did not take 1 prior to starting their travel home to decrease bathroom stops. Patient able to tolerate fluids by mouth. Patient hypertensive and tachycardic in triage. Respirations even and nonlabored. Patient in no acute distress. Related Data Home Medications Medication Instructions Recorded Confirmed allopurinol 100 mg tablet 100 mg PO DAILY 04/08/24 04/08/24 celecoxib 100 mg capsule 100 mg PO DAILY 04/08/24 04/08/24 Allergies Allergy/AdvReac Type Severity Reaction Status Date / Time No Known Allergies Allergy Verified 04/08/24 08:24 Review of Systems Review of Systems: All systems reviewed & are unremarkable except as noted in HPI and below Constitutional: Constitutional: Reports no additional constitutional complaints Eyes: Eyes: Reports no additional eye complaints ENT: Reports system reviewed and no additional complaints, except as documented Cardiovascular: Cardiovascular: Reports no additional cardiovascular complaints, Denies chest pain and Denies dyspnea Respiratory: Respiratory: Reports no additional respiratory complaints, Denies cough and Denies dyspnea Gastrointestinal: Gastrointestinal: Reports as per HPI and Denies abdominal pain Genitourinary: Genitourinary: Reports as per HPI, Reports hematuria, Reports nocturia, Reports dysuria, Denies pelvic pain, Denies flank pain, Denies urinary incontinence and Reports urinary urgency Musculoskeletal: Musculoskeletal: Reports as per HPI and Denies back pain Neurologic: Reports system reviewed and no additional complaints, except as documented Psychiatric: Psychiatric: Reports no additional psychiatric complaints PMFSH Past Medical History Medical History Arthritis Hyperlipidemia Hypertension Idiopathic gout Morbid obesity Surgical History Surgical History Status post bilateral knee replacements Status post cataract extraction and insertion of intraocular lens of left eye 06/28/23 Status post cataract extraction and insertion of intraocular lens of right eye Status post D&C Status post hysterectomy with oophorectomy Status post tubal ligation Family History Family History Sibling Hypertension Father Malignant neoplasm of prostate Family history of diabetes mellitus in first degree relative Social History Social History Smoking status: Never smoker Second hand tobacco smoke exposure: No Alcohol intake: never Substance use: never Substance use type: does not use Lack of Transportation: No Lack of Food: Never True Current Housing: I Have Housing Concerned About Future Housing: No Difficulty Paying Gas/Electric Bills: No Difficulty Paying for Meds: No Education: Associate Degree Difficulty w/ Childcare or Family Care: No Living arrangements
[2024-04-22 16:54] LABS: EDUAAPPEAR Cloudy; EDUABILI 1+; EDUABLOOD 3+; EDUACOLOR1 Tea Colored; EDUAGLUCOSE Negative; EDUAKETONE 1+; EDUALEUKO 2+; EDUANITRATE Negative; EDUAPROTEIN 2+; EDUASPGRAVITY 1.025; EDUAUROBILI 0.2
== END 2024-04-22 16:56 | disposition home or self-care (01) ==
PROVIDERS: Emergency Provider Nurse Practitioner Family; PCP Family Medicine
DX: N39.0 Urinary tract infection, site not specified (principal); B96.20 Unspecified Escherichia coli [E. coli] as the cause of diseases classified elsewhere; M19.90 Unspecified osteoarthritis, unspecified site; E78.5 Hyperlipidemia, unspecified; I10 Essential (primary) hypertension; M10.00 Idiopathic gout, unspecified site; E66.01 Morbid (severe) obesity due to excess calories; Z68.41 Body mass index [BMI] 40.0-44.9, adult; Z96.653 Presence of artificial knee joint, bilateral; Z96.1 Presence of intraocular lens; Z98.42 Cataract extraction status, left eye; Z98.41 Cataract extraction status, right eye
CPT/HCPCS: 81003; 87077; 87086; 87088; 87186; 99213; G0463